=== PATIENT | female | born 1960 | race Two or more races ===

== ENCOUNTER → 2025-05-01 | Emergency (ER) | payer OTHER ==
[~2025-05-01] VITALS: Ht 154.9 cm; Wt 57.6 kg
[~2025-05-01] MED LIST: 0.9 % SODIUM CHLORIDE 1,000 ML IV STA; DIPHENOXYLATE HCL/ATROPINE 1 UDTAB TABLET PO STA; HYDROCODONE/CHLORPHEN P-STIREX 5 ML ML PO STA; MICARDIS HCT 81 EACH; MICARDIS80 MG PO
[2025-05-02 01:04] LABS: BASO % 0.4 % (0.1-1.2); EOS # 0.18 (0.04-0.54); EOS % 1.7 % (0.7-7.0); HEMATOCRIT 35.7 % (34.1-44.9); HEMOGLOBIN 12.7 g/dL (11.2-15.7); LYMPH # 2.46 (1.18-3.74); LYMPH % 23.6 % (19.3-53.1); MEAN CORPUSCULAR HEMOGLOBIN 31.1 pg (25.6-32.2); MONO # 0.84 (0.24-0.82); MONO % 8.1 % (4.7-12.5); NEUT # 6.87 (1.56-6.13); NEUT % 65.8 % (34.0-71.1); PLATELET COUNT 392 K/uL (163-369); RED BLOOD COUNT 4.09 M/uL (3.93-5.22); RED CELL DISTRIBUTION WIDTH 12.5 % (11.6-14.4)
[2025-05-02 01:36] LABS: CALCIUM 8.9 mg/dL (8.5-10.1); CREATININE SERUM 0.76 mg/dL (0.55-1.02); POTASSIUM 4.11 mEq/L (3.5-5.1)
[2025-05-02 02:08] LABS: GFR 76.37
[2025-05-02 02:26] LABS: COVID-19 AG NEGATIVE (NEGATIVE)
[2025-05-02 02:39] LABS: INFLUENZA A AG NEGATIVE (NEGATIVE); INFLUENZA B AG NEGATIVE (NEGATIVE)
== END | disposition home or self-care (01) ==
LOC: ER 20:02
DX: K52.9 Noninfective gastroenteritis and colitis, unspecified (principal); Z20.822 Contact with and (suspected) exposure to COVID-19
CPT/HCPCS: 36415; 71045; 96365; 96366; 99283; J7030